=== PATIENT | female | born 1975 | race African-American/Black ===

== ENCOUNTER 2023-03-06 22:41 | Emergency (ER) | payer OTHER ==
[2023-03-06] MEDS ORDERED: Morphine 4 MG/ML VIAL ONE (23:35)
[2023-03-06] MEDS ORDERED: Ketorolac Tromethamine 30 MG/ML VIAL ONE (23:35)
[2023-03-07] MEDS ORDERED: Morphine 4 MG/ML VIAL ONE ×2 (00:52→05:08)
[2023-03-07 03:23] LABS: #Basophils 0.1 10x3/uL (0.0-0.2); #Eosinphils 0.1 10x3/uL (0.0-0.5); #Monocytes 1.7 10x3/uL (0.0-1.1); #Neutrophils 15.7 10x3/uL (1.5-8.4); %Basophils 0.4 % (0.0-2.0); %Eosinophils 0.6 % (0.0-6.0); %Lymphocytes 9.2 % (18.0-47.0); %Monocytes 8.6 % (0.0-10.0); %Neutrophils 79.9 % (40.0-75.0); Hematocrit 29.6 % (34.9-44.5); Hemoglobin 9.4 g/dL (12.0-15.5); Mean Corpuscular HGB CONC 31.8 g/dL (32.0-36.0); Mean Corpuscular Hemoglobin 24.7 pg (27.0-33.0); Mean Corpuscular Volume 77.9 fl (81.6-98.3); Mean Platelet Volume 10.9 fl (7.4-10.4); Platelet Count 424 10x3/uL (150-450); RBC Distribution Width 18.7 % (11.5-14.5); White Blood Cell (WBC) Count 19.6 10x3/uL (3.5-10.5)
[2023-03-07 03:39] LABS: Anion Gap 19 mmol/L (10-20); BUN (Urea Nitrogen) 10 mg/dL (7.0-18.7); Calc. Creatinine Clearance 0 mL/min (70-130); Calcium 9.7 mg/dL (7.8-10.44); Carbon Dioxide 23 mmol/L (22-29); Chloride 99 mmol/L (98-107); Estimated GFR 109; Glucose 129 mg/dL (70-105); Potassium 3.1 mmol/L (3.5-5.1); Sodium 138 mmol/L (136-145)
== END 2023-03-07 16:42 | disposition short-term general hospital (02) ==
LOC: CSHERS 22:41
DX: M48.57XA Collapsed vertebra, not elsewhere classified, lumbosacral region, initial encounter for fracture (principal); M54.50 Low back pain, unspecified; C18.9 Malignant neoplasm of colon, unspecified; I10 Essential (primary) hypertension
CPT/HCPCS: 80048; 85025; 93005; 93010; 96374; 96375; 96376; J1885; J2270